=== PATIENT | female | born 1950 | race Caucasian/White ===

== ENCOUNTER 2023-12-09 20:25 | Inpatient (IN) | payer MEDICARE, MEDICAID ==
[~2023-12-09] VITALS: Ht 170.2 cm; Wt 67.2 kg
[2023-12-09 20:34] VITALS: BP_SYST 161; PULSE 83; RESP 24; TEMP 97.6; O2SAT 98
[2023-12-09 21:29] LABS: HEMOGLOBIN 13.3 g/dL (12.0-16.0); MEAN CORPUSCULAR HEMOGLOBIN 33 pg (27-31); MEAN CORPUSCULAR HGB CONC 34 % (32-36); MEAN CORPUSCULAR VOLUME 98 fL (79.0-98.0); MONOCYTES # (AUTO) 0.1 K/uL (0.0-1.0); NEUTROPHILS # (AUTO) 6.5 K/uL (1.8-7.7); WHITE BLOOD COUNT (AUTO) 7.2 K/uL (4.8-10.8)
[2023-12-09 21:35] LABS: BASOPHILS % (AUTO) 0.2 % (0.0-2.0); EOSINOPHILS % (AUTO) 0.1 % (0.0-4.0); HEMATOCRIT 39.6 % (36-48); LYMPHOCYTES # (AUTO) 0.6 K/uL (1.0-5.5); LYMPHOCYTES % (AUTO) 7.9 % (20.5-51.5); MONOCYTES % (AUTO) 1.6 % (1.7-9.3); NEUTROPHILS % (AUTO) 90.2 % (40.0-70.0); PLATELET COUNT (AUTO) 200 K/uL (130-430); RED BLOOD CELL COUNT(AUTO) 4.06 MIL/uL (4.2-6.2); RED CELL DISTRIBUTION WIDTH 15.6 % (9.0-15.0)
[2023-12-09 21:43] LABS: ANION GAP 9 (5-15); CALCIUM 8.6 mg/dL (8.4-11.0); CARBON DIOXIDE 29 mmol/L (23-29); CHLORIDE 104 mmol/L (98-107); CREATININE 0.98 mg/dL (0.55-1.30); GLUCOSE 158 mg/dL (74-106); POTASSIUM 4.1 mmol/L (3.5-5.1); SODIUM SERUM 142 mmol/L (136-145); UREA NITROGEN, BLOOD 19 mg/dL (8-21)
[2023-12-09] MEDS ORDERED: PRED20TA PO (22:40)
[2023-12-09] MEDS ORDERED: ZIT250 PO ×3 (22:40)
[2023-12-09] MEDS ORDERED: POTA-197 PO (22:40)
[2023-12-09] MEDS ORDERED: LIP80 PO (22:40)
[2023-12-09] MEDS ORDERED: LOSA-413 PO (22:40)
[2023-12-09] MEDS ORDERED: ALBMDI INH (22:40)
[2023-12-09] MEDS ORDERED: PROP10TA10 PO (22:40)
[2023-12-09] MEDS ORDERED: FURO40TA5 PO (22:40)
[2023-12-09] MEDS ORDERED: UMEC62.5 IH (22:40)
[2023-12-09] MEDS ORDERED: PRO20 PO (22:40)
[2023-12-09] MEDS ORDERED: TERB250T90 PO (22:40)
[2023-12-09] MEDS ORDERED: BUPR-120 PO (22:40)
[2023-12-09] MEDS ORDERED: TRAZ-250 PO (22:40)
[2023-12-09] MEDS: FUROSEMIDE 40 MG/4 ML VIAL IVP ONE (22:50)
[2023-12-09 23:49] VITALS: BP_SYST 152; PULSE 74; RESP 18; TEMP 97.3
[2023-12-10] VITALS (15 sets, daily range): BP systolic 126–152; PULSE 57–78; RESP 16–20; TEMP 96.9–98.2; O2SAT 92–99
[2023-12-10] MEDS: IPRATROPIUM/ALBUTEROL SULFATE 3 ML AMPUL.NEB (DUONEB) INH PRN (00:04)
[2023-12-10 00:28] LABS: BLOOD GAS PCO2 40.4 mmHg (32.0-45.0); BLOOD GAS PH 7.417 (7.350-7.450)
[2023-12-10 00:29] LABS: ABG O2 SAT% ESTIMATE 99.8 % (94.0-98.0); BLOOD GAS BASE EXCESS 0.9 mmol/L (-2.0-3.0); BLOOD GAS HCO3 25.4 mmol/L (21.0-28.0); BLOOD GAS PO2 336.4 mmHg (83.0-108.0)
[2023-12-10 08:24] LABS: BASOPHILS # (AUTO) 0.1 K/uL (0.0-0.2); BASOPHILS % (AUTO) 0.8 % (0.0-2.0); EOSINOPHILS % (AUTO) 0.4 % (0.0-4.0); HEMATOCRIT 40.9 % (36-48); HEMOGLOBIN 13.5 g/dL (12.0-16.0); LYMPHOCYTES # (AUTO) 1.4 K/uL (1.0-5.5); LYMPHOCYTES % (AUTO) 18.9 % (20.5-51.5); MEAN CORPUSCULAR HEMOGLOBIN 32 pg (27-31); MEAN CORPUSCULAR HGB CONC 33 % (32-36); MEAN CORPUSCULAR VOLUME 98 fL (79.0-98.0); MONOCYTES # (AUTO) 0.8 K/uL (0.0-1.0); MONOCYTES % (AUTO) 10.7 % (1.7-9.3); NEUTROPHILS # (AUTO) 5.3 K/uL (1.8-7.7); NEUTROPHILS % (AUTO) 69.2 % (40.0-70.0); PLATELET COUNT (AUTO) 211 K/uL (130-430); RED BLOOD CELL COUNT(AUTO) 4.18 MIL/uL (4.2-6.2); RED CELL DISTRIBUTION WIDTH 15.2 % (9.0-15.0); WHITE BLOOD COUNT (AUTO) 7.6 K/uL (4.8-10.8)
[2023-12-10 08:28] LABS: ANION GAP 6 (5-15); CALCIUM 8.9 mg/dL (8.4-11.0); CARBON DIOXIDE 34 mmol/L (23-29); CHLORIDE 106 mmol/L (98-107); CREATININE 0.71 mg/dL (0.55-1.30); GLUCOSE 99 mg/dL (74-106); POTASSIUM 3.3 mmol/L (3.5-5.1); SODIUM SERUM 146 mmol/L (136-145); UREA NITROGEN, BLOOD 13 mg/dL (8-21)
[2023-12-10] MEDS: FUROSEMIDE 40 MG TABLET PO SCH (10:11)
[2023-12-10] MEDS: buPROPion HCL 150 MG XL TAB PO SCH (10:11)
[2023-12-10] MEDS: LOSARTAN POTASSIUM 50 MG TABLET (COZAAR) PO SCH (10:11)
[2023-12-10] MEDS: cefTRIAXone 1 GM in D5W 50 ML IV SCH (11:09)
[2023-12-10] MEDS: methylPREDNISolone SOD SUCC/PF 62.5 MG/ML VIAL IVP ONE (11:10)
[2023-12-10] MEDS: ATORVASTATIN 20 MG TABLET PO SCH (21:16)
[2023-12-10] MEDS: methylPREDNISolone SOD SUCC/PF 62.5 MG/ML VIAL IVP SCH (21:17)
[2023-12-11] VITALS (7 sets, daily range): BP systolic 110–138; PULSE 62–79; RESP 18–20; TEMP 97.6–98.2; O2SAT 95–96
[2023-12-11 07:11] LABS: BASOPHILS % (AUTO) 0.1 % (0.0-2.0); HEMATOCRIT 41.6 % (36-48); HEMOGLOBIN 13.8 g/dL (12.0-16.0); LYMPHOCYTES # (AUTO) 0.8 K/uL (1.0-5.5); LYMPHOCYTES % (AUTO) 7.2 % (20.5-51.5); MEAN CORPUSCULAR HEMOGLOBIN 33 pg (27-31); MEAN CORPUSCULAR HGB CONC 33 % (32-36); MEAN CORPUSCULAR VOLUME 98 fL (79.0-98.0); MONOCYTES # (AUTO) 0.4 K/uL (0.0-1.0); MONOCYTES % (AUTO) 3.3 % (1.7-9.3); NEUTROPHILS # (AUTO) 9.7 K/uL (1.8-7.7); NEUTROPHILS % (AUTO) 89.4 % (40.0-70.0); PLATELET COUNT (AUTO) 214 K/uL (130-430); RED BLOOD CELL COUNT(AUTO) 4.24 MIL/uL (4.2-6.2); RED CELL DISTRIBUTION WIDTH 15.9 % (9.0-15.0); WHITE BLOOD COUNT (AUTO) 10.8 K/uL (4.8-10.8)
[2023-12-11 07:21] LABS: ANION GAP 9 (5-15); CALCIUM 9.1 mg/dL (8.4-11.0); CARBON DIOXIDE 31 mmol/L (23-29); CHLORIDE 103 mmol/L (98-107); CREATININE 0.73 mg/dL (0.55-1.30); GLUCOSE 136 mg/dL (74-106); POTASSIUM 4.1 mmol/L (3.5-5.1); SODIUM SERUM 143 mmol/L (136-145); UREA NITROGEN, BLOOD 18 mg/dL (8-21)
== END 2023-12-11 15:08 | disposition home or self-care (01) | DRG 189 ==
LOC: SED 20:25 → STU 22:21
PROVIDERS: ADMIT General Practice; ATTEND General Practice
PROC: 5A09357 Assistance with Respiratory Ventilation, Less than 24 Consecutive Hours, Continuous Positive Airway Pressure (ICD-10-PCS; principal; 2023-12-09)
PROC: 5A09357 Assistance with Respiratory Ventilation, Less than 24 Consecutive Hours, Continuous Positive Airway Pressure (ICD-10-PCS; 2023-12-10)
DX: J96.00 Acute respiratory failure, unspecified whether with hypoxia or hypercapnia (principal); J44.1 Chronic obstructive pulmonary disease with (acute) exacerbation; J90 Pleural effusion, not elsewhere classified; I50.9 Heart failure, unspecified; F32.A Depression, unspecified; E78.5 Hyperlipidemia, unspecified; E78.00 Pure hypercholesterolemia, unspecified; I11.0 Hypertensive heart disease with heart failure; Z79.899 Other long term (current) drug therapy; Z88.8 Allergy status to other drugs, medicaments and biological substances; Z87.891 Personal history of nicotine dependence
CPT/HCPCS: 36415; 36600; 71045; 71260; 80048; 82803; 83735; 83880; 84484; 85025; 87081; 93005; 93306; 94640; 94660; 94760; 99291; G0378; J0696; J1940; J2930; J7060; Q9967